=== PATIENT | male | born 1955 | race Caucasian/White ===

== ENCOUNTER 2020-12-23 11:53 | Outpatient (CLI) | payer MEDICARE, BC | END 2020-12-23 11:54 | disposition home or self-care (01) | LOC: LAB 11:53 | PROVIDERS: ATTEND Internal Medicine Hematology & Oncology | DX: C18.9 Malignant neoplasm of colon, unspecified (principal) | CPT/HCPCS: 36415; 82378 ==

== ENCOUNTER 2021-03-31 07:51 | Outpatient (CLI) | payer MEDICARE, BC ==
--- NOTE | 2021-03-31 14:40 | MRI Report ---
PROCEDURE: Angio Brain W/O (MRA) INDICATIONS: NEURALGIA, OTALGIA TECHNIQUE: Noncontrast axial 3-D [id number] MR angiogram, with 3-dimensional maximum intensity projection (M IP) reformats of the internal carotid arteries and posterior circulation then performed. COMPARISON: None. FINDINGS: Image quality: Excellent. Anterior circulation: Intracranial internal carotid arteries demonstrate normal size and intralumina l flow signal. The flow within the paired anterior cerebral arteries is normal and symmetric. The f low within the middle cerebral arteries is normal and symmetric. The anterior communicating artery i s seen. No stenoses, occlusions, or aneurysms. Posterior circulation: Visualized portions of the vertebral arteries demonstrate normal caliber, and join to form a normal appearing basilar artery. The flow within the posterior cerebral arteries is normal and symmetric. No stenoses, occlusions, or aneurysms. IMPRESSION: Unremarkable MR angiogram of the brain without evidence of vessel occlusion, aneurysm or vascular mal formation Reviewed by: Medardo Cai MD on 03/31/2021 1:38 PM [facility] Approved by: Medardo Cai MD on 03/31/2021 1:38 PM [facility] Station ID: [id number]
== END 2021-03-31 07:52 | disposition home or self-care (01) ==
LOC: DI 07:51
PROVIDERS: ATTEND Psychiatry & Neurology Neurology
DX: M79.2 Neuralgia and neuritis, unspecified (principal); H92.01 Otalgia, right ear

== ENCOUNTER 2021-05-11 08:30 | Outpatient (CLI) | payer MEDICARE, BC ==
[2021-05-11] MEDS ORDERED: GADOBUTROL 10 MMOL/10 ML VIAL ONE (09:14)
--- NOTE | 2021-05-11 12:45 | MRI Report ---
PROCEDURE: Abdomen W/WO INDICATIONS: COLON CA, SEVERE IODINATED CONTRAST ALLERGY CONTRAST: IV CONTRAST: Gadavist ml: 8.1 TECHNIQUE: Coronal ultra fast SE, axial 2D spoiled GE in- and [id number]; axial breath-hold T2 fast SE. Dynam ic axial ultra fast GE during the administration of contrast; post-contrast coronal ultra fast GE or 2D spoiled GE with fat saturation from the hepatic dome to the iliac crests. Optional diffusion weig hted imaging and ADC may be performed. COMPARISON: None FINDINGS: Image quality: Adequate. The sensitivity of MR is less than CT due to technical differences.. Lung bases: No basal pleural effusions. Heart size is mildly enlarged. Solid organs: The liver is normal size. An ovoid area of hypointensity measuring 3.6 x 1.7 cm is pre sent at the liver dome in segment VIII, and only seen as an area of hypoenhancement or T2 hypointensi ty. There are several T2 hyperintensities of varying sizes in both lobes of the liver, the largest in the left lobe measures 3.2 cm and the largest in the right lobe measures 3.2 cm. No enhancement of a ny of these lesions postcontrast. They're consistent with simple cysts. No other arterially enhancing liver lesion. The spleen is absent. There are 2 nodules in the left upper quadrant with signal isointense to that e xpected of spleen. The larger measures 3.0 cm and is likely a splenule. Gallbladder appears normal. N o adrenal masses. Normal pancreas. Normal kidneys without hydronephrosis. Nodes and vessels: No retroperitoneal or mesenteric adenopathy by size criteria. Aorta and inferior vena cava are normal in size. Bowel and peritoneum: Unenhanced bowel loops are normal in caliber. No free fluid. Bones and soft tissues: No ventral hernias. Bone marrow is normal in overall signal. IMPRESSION: 1. Ovoid 3.6 cm nonenhancing liver lesion at the dome may represent treated lesion or vascular anomal y. It is nonspecific but not classic for metastatic disease. 2. Several liver cysts. 3. No definite metastatic disease in the abdomen. 4. 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 Reviewed by: Anayeli Alegre MD on 05/11/2021 12:44 PM PDT Approved by: Anayeli Alegre MD on 05/11/2021 12:44 PM PDT Station ID: [id number]
--- NOTE | 2021-05-11 12:51 | MRI Report ---
PROCEDURE: Pelvis W/WO INDICATIONS: COLON CA, SEVERE IODINATED CONTRAST ALLERGY CONTRAST: IV CONTRAST: Gadavist ml: 8.1 TECHNIQUE: Coronal ultra fast SE, sagittal breath-hold T2 FSE; axial T1 FSE with and without fat saturation thro ugh the pelvis. Optional long- and short-axis uterine nonbreath-hold T2 FSE through the uterus. Sag ittal or axial dynamic ultra fast GE during administration of contrast. Post-contrast axial or coron al ultra fast GE / 2-D spoiled GE with fat saturation from the iliac crests to the symphysis. Option al diffusion weighted imaging and ADC may be performed. COMPARISON: None. FINDINGS: Image quality: Adequate, however quality is decreased compared to CT due to differences in technique. . Reproductive system: Mild prostate enlargement. Urinary system: Bladder wall is normal in thickness. Distal ureters are non distended. Urethra karen ears normal in morphology. Nodes and vessels: No pelvic or inguinal adenopathy by size criteria. Iliac vessels are normal in s ize. Bowel and peritoneum: No pathologic free pelvic fluid. Inferior colon and small bowel loops are nor mal in caliber. Soft tissues: Normal muscle bulk and signal. Small bilateral fat-containing inguinal hernias, left gr eater than right. Bones: Marrow demonstrates normal overall signal. Small vertebral body hemangioma and bowel for and L5. IMPRESSION: 1. No evidence of metastatic disease in the pelvis. Reviewed by: Anayeli Alegre MD on 05/11/2021 12:49 PM PDT Approved by: Anayeli Alegre MD on 05/11/2021 12:49 PM PDT Station ID: [id number]
[2021-05-11] MEDS ORDERED: GADOBUTROL 10 MMOL/10 ML VIAL IVP ONE (16:38)
== END 2021-05-11 08:31 | disposition home or self-care (01) ==
LOC: DI 08:30
PROVIDERS: ATTEND Internal Medicine
DX: C18.9 Malignant neoplasm of colon, unspecified (principal); C79.9 Secondary malignant neoplasm of unspecified site; K76.9 Liver disease, unspecified; K76.89 Other specified diseases of liver; Z90.81 Acquired absence of spleen

== ENCOUNTER 2021-10-28 08:20 | Outpatient (CLI) | payer MEDICARE, BC ==
[2021-10-28 08:35] LABS: BASOPHILS # (AUTO) 0.1 10^3/uL (0.0-0.1); BASOPHILS % (AUTO) 1.1 %; EOSINOPHILS # (AUTO) 0.2 10^3/uL (0.0-0.7); EOSINOPHILS % (AUTO) 3.2 %; HCT - HEMATOCRIT 44.5 % (42.0-52.0); HGB - HEMOGLOBIN 15.5 g/dL (14.0-18.0); LYMPHOCYTES # (AUTO) 1.5 10^3/uL (1.5-3.5); LYMPHOCYTES % (AUTO) 26.9 %; MEAN CORPUSCULAR HEMOGLOBIN 31.4 pg (27.0-31.0); MEAN CORPUSCULAR HGB CONC 34.8 g/dL (32.0-36.0); MEAN CORPUSCULAR VOLUME 90.3 fL (80.0-94.0); MONOCYTES # (AUTO) 0.8 10^3/uL (0.0-1.0); MONOCYTES % (AUTO) 13.4 %; NEUTROPHILS # (AUTO) 3.2 10^3/uL (1.5-6.6); NEUTROPHILS % (AUTO) 55.2 %; PLT - PLATELET COUNT 258 10^3/uL (130-450); RED BLOOD COUNT 4.93 10^6/uL (4.70-6.10); RED CELL DISTRIBUTION WIDTH 15.3 % (12.0-15.0); WHITE BLOOD COUNT 5.7 x10^3/uL (4.8-10.8)
[2021-10-28 08:56] LABS: ALBUMIN 3.8 g/dL (3.2-5.5); ALBUMIN/GLOBULIN RATIO 1.2 (1.0-2.2); BILIRUBIN,TOTAL 0.7 mg/dL (0.2-1.0); CALCIUM 9.3 mg/dL (8.5-10.3); POTASSIUM 4.3 mmol/L (3.5-5.0); TOTAL PROTEIN 6.9 g/dL (6.7-8.2)
== END 2021-10-28 08:21 | disposition home or self-care (01) ==
LOC: LAB 08:20
PROVIDERS: ATTEND Internal Medicine
DX: C18.9 Malignant neoplasm of colon, unspecified (principal)
CPT/HCPCS: 36415; 80053; 82378; 82728; 83540; 84466; 85025

== ENCOUNTER 2021-10-31 08:03 | Outpatient (CLI) | payer MEDICARE, BC ==
[2021-10-31] MEDS ORDERED: GADOBUTROL 10 MMOL/10 ML VIAL ONE (08:22)
--- NOTE | 2021-10-31 15:14 | MRI Report ---
PROCEDURE: Pelvis W/WO INDICATIONS: COLON CA+ CONTRAST: IV CONTRAST: Gadavist ml: 8.3 TECHNIQUE: Coronal ultra fast SE, sagittal T2 FSE, axial T1 FSE, axial and coronal nonbreath-hold T2 FSE. Post- contrast axial and coronal ultra fast GE / 2-D spoiled GE with fat saturation from the iliac crests t o the symphysis. Optional diffusion weighted imaging and ADC may be performed. COMPARISON: Concurrent MRI of the abdomen. MRI pelvis 05/11/2021, MRI abdomen 05/11/2021. FINDINGS: Image quality: There is motion artifact limiting evaluation. Bowel and peritoneum: No pathologic free pelvic fluid. Visualized bowel loops are normal in caliber. Evaluation for discrete mass lesions within the bowel is limited due to motion artifact. Genitourinary system: Bladder wall is normal in thickness. Distal ureters are non distended. There is mild heterogeneous enlargement of the prostate. Nodes and vessels: No pathologic pelvic or inguinal adenopathy by size criteria. Iliac vessels are normal in caliber. Soft tissues: No inguinal hernias. There is mild peritendinous edema and enhancement along the origi ns of the fissures hamstring tendons compatible with peritendinitis or mild strains. Mild edema and e nhancement also demonstrated adjacent to the greater trochanters bilaterally along the distal gluteal tendons suggestive of peritendinitis. Bones: Marrow is normal in overall signal. Visualized osseous structures demonstrate no suspicious f ocal lesions. IMPRESSION: 1. No definite evidence of metastatic disease in the pelvis. Reviewed by: Mauricio Sellers MD on 10/31/2021 3:13 PM PDT Approved by: Mauricio Sellers MD on 10/31/2021 3:13 PM PDT Station ID: [id number]
[2021-10-31] MEDS: GADOBUTROL 10 MMOL/10 ML VIAL IVP ONE (15:30)
--- NOTE | 2021-10-31 15:33 | MRI Report ---
PROCEDURE: Abdomen W/WO INDICATIONS: COLON CA CONTRAST: IV CONTRAST: Gadavist ml: 8.3 TECHNIQUE: Coronal ultra fast SE, axial 2D spoiled GE in- and [id number]; axial breath-hold T2 fast SE. Dynam ic axial ultra fast GE during the administration of contrast; post-contrast coronal ultra fast GE or 2D spoiled GE with fat saturation from the hepatic dome to the iliac crests. Optional diffusion weig hted imaging and ADC may be performed. COMPARISON: Concurrent MRI of the pelvis. MRI abdomen 05/11/2021. FINDINGS: Image quality: There is motion artifact limiting evaluation. Lung bases: No basal pleural effusions. There are patchy posterior opacities within the visualized l ungs likely representing atelectasis but which are incompletely evaluated on MRI. Heart size is at th e upper limits of normal. Solid organs: Within the right hepatic dome, there is a oval circumscribed subcapsular lesion with a n internal linear T2 hyperintense/T1 hypointense tract which is otherwise surrounded by diffuse T2 hy pointensity and intrinsic T1 hyperintensity. This measures up to approximately 4.0 x 1.8 cm in transv erse dimension on series 801 image 145, stable in size compared to the prior study given differences in slice acquisition. There is no definite enhancement following contrast administration. The finding s are consistent with an ablation cavity secondary to prior RF ablation. No definite new discrete hep atic mass or suspicious enhancement to suggest new or residual metastatic disease. Multiple hepatic c ysts are redemonstrated including clustered septated cysts within the inferior right hepatic lobe. Gallbladder appears within normal limits without gallstones. Biliary system is non dilated. Pancreas is normal in morphology. No discrete pancreatic mass or pancreatic duct dilatation. No adrenal nodul es. Multiple clustered left subdiaphragmatic mass lesions are redemonstrated compatible with splenul es. Spleen is otherwise absent. Kidneys demonstrate no hydronephrosis. Nodes and vessels: No retroperitoneal or mesenteric adenopathy by size criteria. Aorta and inferior vena cava are normal in size. Bowel and peritoneum: Visualized bowel loops are normal in caliber. No free fluid. Bones and soft tissues: No ventral hernias. Bone marrow is normal in overall signal. Visualized oss eous structures demonstrate no suspicious focal lesions. IMPRESSION: 1. Right hepatic dome lesion consistent with an ablation cavity redemonstrated without definite evide nce of recurrent or new metastatic disease. Reviewed by: Mauricio Sellers MD on 10/31/2021 3:32 PM PDT Approved by: Mauricio Sellers MD on 10/31/2021 3:32 PM PDT Station ID: [id number]
== END 2021-10-31 08:04 | disposition home or self-care (01) ==
LOC: DI 08:03
PROVIDERS: ATTEND Internal Medicine
DX: C18.9 Malignant neoplasm of colon, unspecified (principal)
CPT/HCPCS: 72197; 74183; A9585

== ENCOUNTER 2022-04-20 09:21 | Day surgery (SDC) | payer MEDICARE, BC ==
[2022-04-20] MEDS ORDERED: LACTATED RINGERS 1,000 ML IV ONE (09:40)
[2022-04-20] MEDS ORDERED: PROPOFOL 500 MG/50 ML 500 MG/50 ML VIAL ONE (10:09)
[2022-04-20] MEDS ORDERED: PROPOFOL 200 MG/20 ML VIAL IVP ONE (10:09)
--- NOTE | 2022-04-20 10:35 | ANESTHESIA ---
Pre-Anesthesia VS, & Labs - Diagnosis history of colon cancer - Procedure colonoscopy Vital Signs: Temp Pulse Resp BP Pulse Ox O2 Flow Rate 36.7 C 60 13 148/79 H 99 0 04/20/22 09:41 04/20/22 09:41 04/20/22 09:41 04/20/22 09:41 04/20/22 09:41 04/20/22 09:41 Height: 5 ft 10 in Weight (kg): 82.4 kg Body Mass Index: 26.0 BMI Classification: Overweight - NPO >8 hours - Lab Results Lab results reviewed: No Home Medications and Allergies Home Medications: Ambulatory Orders Multivitamin 1 each PO DAILY 04/19/22 Pregabalin [Lyrica] 25 mg PO BID 04/19/22 Multivitamin 1 each PO DAILY 04/19/22 Pregabalin [Lyrica] 25 mg PO BID 04/19/22 Allergies/Adverse Reactions: Allergies Allergy/AdvReac Type Severity Reaction Status Date / Time iodine Allergy Unknown Verified 04/20/22 09:34 Anes History & Medical History - Anesthetic History Anesthesia Complications: reports: No previous complications Family history of Anesthesia Complications: Denies Family history of Malignant Hyperthermia: Denies - Medical History Cardiovascular: reports: None Pulmonary: reports: None Gastrointestinal: reports: None, Colon polyps, Other (colon cancer) Urinary: reports: None Neuro: reports: None Musculoskeletal: reports: Rheumatoid arthritis, Gout Endocrine/Autoimmune: reports: None Blood Disorders: reports: None Skin: reports: None Smoking Status: Former smoker Psychosocial: reports: Cannabis History of Cancer?: Yes (colon ca) - Surgical History General: reports: Liver surgery, Colonoscopy Orthopedic: reports: Knee replacement Exam General: Alert, Oriented x3, Cooperative, No acute distress Mouth Openin Fingerbreadth Neck Mobility: Normal Mallampati classification: II Thyromental Distance: 4-6 cm Mental/Cognitive Status: Alert/Oriented X3, Normal for patient Cognitive Status: Within normal limits Plan Anesthesia Type: General, Total IV Consent for Procedure(s) Verified and Reviewed: Yes Code Status: Attempt Resuscitation ASA classification: 2-Mild systemic disease Is this case an emergency?: No
[2022-04-20] MEDS ORDERED: fentaNYL 100 MCG/2 ML VIAL ONE (10:54)
[2022-04-20] MEDS ORDERED: LACTATED RINGERS 300 ML IV ONE (11:30)
[2022-04-20 11:49] VITALS: BP 125/71
--- NOTE | 2022-04-20 15:32 | ANESTHESIA POST OP EVALUATION ---
Anesthesia Post Eval - Post Anesthesia Eval Vitals: Last Vital Signs Temp 36.4 C L 04/20/22 11:45 Pulse 81 04/20/22 11:45 Resp 60 H 04/20/22 11:45 BP 125/71 04/20/22 11:45 Pulse Ox 96 04/20/22 11:45 O2 Flow Rate 0 04/20/22 09:41 CV Function Including HR & BP: Stable Pain Control: Satisfactory Nausea & Vomiting: Negative Mental Status: Baseline Respiratory Status: Airway Patent Hydration Status: Satisfactory Anesthesia Complications: None
== END 2022-04-20 09:22 | disposition home or self-care (01) ==
LOC: SDS 09:21
PROVIDERS: ATTEND Surgery
PROC: 0DBM8ZX Excision of Descending Colon, Via Natural or Artificial Opening Endoscopic, Diagnostic (ICD-10-PCS; 2022-04-20)
PROC: 0DBK8ZX Excision of Ascending Colon, Via Natural or Artificial Opening Endoscopic, Diagnostic (ICD-10-PCS; principal; 2022-04-20 10:30)
DX: Z85.038 Personal history of other malignant neoplasm of large intestine (principal); D12.2 Benign neoplasm of ascending colon; D12.4 Benign neoplasm of descending colon; K57.30 Diverticulosis of large intestine without perforation or abscess without bleeding; Z87.891 Personal history of nicotine dependence
CPT/HCPCS: 45380; J7120

== ENCOUNTER 2023-02-05 10:40 | Outpatient (CLI) | payer MEDICARE, OTHER ==
--- NOTE | 2023-02-05 15:15 | XRAY Report ---
PROCEDURE: Foot 3 View BILAT INDICATIONS: BL FOOT PAIN TECHNIQUE: 6 views of the bilateral feet were acquired. COMPARISON: None. FINDINGS: Bones: No fractures or dislocations. No suspicious bony lesions. Mild plantar calcaneal spurring. Soft tissues: No suspicious soft tissue calcifications or masses. IMPRESSION: No acute bony abnormality. If pain persists with conservative management, consider repeat radiographs in 10-14 days or cross-sectional imaging. Reviewed by: Steve Jacob MD on 02/05/2023 3:14 PM PDT Approved by: Steve Jacob MD on 02/05/2023 3:14 PM PDT Station ID: [id number]
== END 2023-02-05 10:41 | disposition home or self-care (01) ==
LOC: DI 10:40
PROVIDERS: ATTEND Podiatrist
DX: M79.672 Pain in left foot (principal); M79.671 Pain in right foot